=== PATIENT | female | born 1925 | race Caucasian/White ===

== ENCOUNTER 2017-01-03 17:14 | Emergency (ER) | payer MEDICARE, OTHER ==
[~2017-01-03 17:14] MED LIST: ASCO500C PO; ASPI81TA81 PO; BIOTCAP PO; CARV12.5 PO; FISH500C PO; LEVO.1 PO; VITA400T2 PO
[2017-01-03] MEDS ORDERED: HYDR200T3 PO (17:25)
[2017-01-03 17:27] VITALS: BP 221/108; PULSE 68; RESP 20; TEMP 98; O2SAT 98
[2017-01-03] MEDS ORDERED: CARVEDILOL 12.5 MG TAB PO ONE (17:45)
[2017-01-03 17:57] LABS: BLOOD, URINE TRACE (NEG); GLUCOSE,URINE NEG (NEG); KETONE, URINE NEG (NEG); NITRITE,URINE NEG (NEG); PH, URINE 6.5 (5.0-8.5)
--- NOTE | 2017-01-03 17:59 | PD ---
HPI Chief Complaint: Hypertension Time Seen by Provider: 17:30 Travel History International Travel<30 days: No Contact w/Intl Traveler<30days: No Traveled to known affect area: No History of Present Illness HPI This 89-year-old female presents with complaint of high blood pressure. She resides at [facility] and she monitors her blood pressure. She wasn't feeling well this morning she checked her blood pressure no stool for 110. She laid flat for a while and came down to 146/80. She went down for dinner tonight and felt lightheaded and her blood pressure was elevated again. She has been feeling dizzy off and on. She has a history of vertigo. She was admitted to the hospital in September 2016 hyponatremia PFSH Past Medical History Hx Anticoagulant Therapy: Yes Arthritis: Yes Asthma: No Atrial Fibrillation: Yes (FLUTTER) Autoimmune Disease: No Blood Disorders: No Depression: Yes Heart Rhythm Problems: No Cancer: No Cardiovascular Problems: Yes (MITRAL REGURGITATION) High Cholesterol: No Chemotherapy: No Chest Pain: No Congestive Heart Failure: No COPD: Yes Cerebrovascular Accident: No Diabetes: No Diminished Hearing: No Endocrine: Yes Gastrointestinal Disorders: Yes (DIVERTICULOSIS) GERD: No Glaucoma: No Genitourinary: No Headaches: No Hepatitis: No Hiatal Hernia: No Hypertension: Yes Immune Disorder: No Kidney Stones: No Medical other: Yes (OSTEOPENIA) Musculoskeletal: Yes (SPINAL STENOSIS, HUMERAL FX ) Neurologic: Yes (VERTIGO) Psychiatric: Yes Reproductive: No Respiratory: No Immunizations Current: Yes Migraines: No Myocardial Infarction: No Radiation Therapy: No Renal Failure: Yes (INSUFFECIENCY) Seizures: No Sickle Cell Disease: No Sleep Apnea: No Thyroid Disease: Yes (hypothyroidism) Ulcer: No Tetanus Vaccination: < 5 Years Influenza Vaccination: Yes Menopausal: Yes Past Surgical History Abdominal Surgery: Yes AICD: No Appendectomy: Yes Arteriovenous Shunt: No Cardiac Surgery: No Cholecystectomy: Yes Ear Surgery: No Endocrine Surgery: No Eye Surgery: Yes (right eye cataract surgery) Genitourinary Surgery: No Gynecologic Surgery: Yes (hysterectomy) Hysterectomy: Yes Insulin Pump: No Joint Replacement: No Oral Surgery: No Pacemaker: No Thoracic Surgery: No Other Surgery: Yes Social History Alcohol Use: No Tobacco Use: No (quit 60 yrs ago) Substance Use: No Allergies-Medications (Allergen,Severity, Reaction): Coded Allergies: LOTREL 10/2.5 (Verified Allergy, Severe, PEDAL EDEMA, 09/11/16) Penicillin (Verified Allergy, Severe, ITCHING, 09/11/16) Bactrim (Verified Allergy, Intermediate, ITCHING, 09/11/16) Bextra (Verified Allergy, Intermediate, ITCHING, 09/11/16) Biaxin (Verified Allergy, Intermediate, ITCHING, 09/11/16) Calcium Channel Blockers (Verified Allergy, Intermediate, ITCHING, 09/11/16 ) Codeine (Verified Allergy, Intermediate, ITCHING, 09/11/16) Lisinopril (Verified Allergy, Intermediate, ITCHING, 09/11/16) Neosporin (Verified Allergy, Intermediate, ITCHING, 09/11/16) Uncoded Allergies: CODEINE (Allergy, Mild, Itching, 04/03/06) DIARY (Allergy, Mild, BLOATTING, GAS, 04/03/06) LISINOPRIL (Allergy, Mild, Itching, 04/03/06) LOTREL (Allergy, Mild, Anaphylaxis, 04/03/06) MOBIC (Allergy, Mild, ITCHING, 12/10/79) NEOSPORIN (Allergy, Mild, Itching, 04/03/06) NO CALCIUM CHANNEL BLOCKERS (Allergy, Mild, Itching, 04/03/06) Reported Meds & Prescriptions Reported Meds & Active Scripts Active Coreg (Carvedilol) 12.5 Mg Tab 25 Mg PO BID Reported Hydroxychloroquine (Hydroxychloroquine Sulfate) 200 Mg Tab 200 Mg PO THREE TIMES WEEK Takw with food Aspir-81 (Aspirin) 81 Mg Tabdr 1 Tab PO DAILY Fish Oil ([place]-3 Fatty Acids) 500 Mg Cap 1 Tab PO DAILY Vitamin C (Ascorbic Acid) 500 Mg Cap 500 Mg PO DAILY Biotin 5 Mg Cap 5 Mg PO DAILY Synthroid (Levothyroxine Sodium) 100 Mcg Tab 75 Mcg PO DAILY Vitamin D (Cholecalciferol) 400 Unit Tab 1 Tab PO DAILY Review of Systems General / Constitutional: No: Fever Eyes: No: Diploplia, Blurred Vision HENT: Positive: Lightheadedness, No: Headaches Cardiovascular: No: Chest Pain or Discomfort, Palpitations Respiratory: No: Cough, Shortness of Breath Gastrointestinal: No: Vomiting, Diarrhea Genitourinary: No: Urgency, Frequency Musculoskeletal: No: Myalgias, Arthralgias Skin: No Rash, No Itching Neurologic: Positive: Weakness Psychiatric: No: Anxiety Hematologic/Lymphatic: No: Easy Bruising Physical Exam Narrative GENERAL: Well-developed female. Blood pressure is initially elevated SKIN: Focused skin assessment warm/dry. HEAD: Atraumatic. Normocephalic. EYES: Pupils equal and round. No scleral icterus. No injection or drainage. ENT: No nasal bleeding or discharge. Mucous membranes pink and moist. NECK: Trachea midline. No JVD. CARDIOVASCULAR: Regular rate and rhythm. No murmur appreciated. RESPIRATORY: No accessory muscle use. Clear to auscultation. Breath sounds equal bilaterally. GASTROINTESTINAL: Abdomen soft, non-tender, nondistended. Hepatic and splenic margins not palpable. MUSCULOSKELETAL: No obvious deformities. No clubbing. No cyanosis. No edema. NEUROLOGICAL: Awake and alert. No obvious cranial nerve deficits. Motor grossly within normal limits. Normal speech. PSYCHIATRIC: Appropriate mood and affect; insight and judgment normal. Data Data Last Documented VS Vital Signs Date Time Temp Pulse Resp B/P Pulse Ox O2 Delivery O2 Flow Rate FiO2 01/03/17 19:20 Room Air 01/03/17 19:19 67 163/81 97 01/03/17 17:27 98.0 20 Orders Complete Blood Count With Diff (01/03/17 17:45) Basic Metabolic Panel (Bmp) (01/03/17 17:45) Troponin I (01/03/17 17:45) Ua Includes Microscopic (01/03/17 17:45) Carvedilol (Coreg) (01/03/17 17:45) Clonidine (Catapres) (01/03/17 18:45) Labs Laboratory Tests Test 01/03/17 01/03/17 17:50 18:15 Urine Collection Type CLEAN CATCH Urine Color YELLOW Urine Turbidity CLEAR Urine pH 6.5 Urine Specific [place] 1.008 Urine Protein NEG mg/dL Urine Glucose (UA) NEG mg/dL Urine Ketones NEG mg/dL Urine Occult Blood TRACE Urine Nitrite NEG Urine Bilirubin NEG Urine Leukocyte Esterase NEG Urine RBC 0-3 /hpf Urine Squamous Epithelial 0-5 /hpf Cells Urine Collection Time 17:50 White Blood Count 3.6 TH/MM3 Red Blood Count 4.49 MIL/MM3 Hemoglobin 12.4 GM/DL Hematocrit 38.1 % Mean Corpuscular Volume 84.8 FL Mean Corpuscular Hemoglobin 27.7 PG Mean Corpuscular Hemoglobin 32.7 % Concent Red Cell Distribution Width 13.6 % Platelet Count 205 TH/MM3 Mean Platelet Volume 7.1 FL Neutrophils (%) (Auto) 66.7 % Lymphocytes (%) (Auto) 21.1 % Monocytes (%) (Auto) 6.7 % Eosinophils (%) (Auto) 4.2 % Basophils (%) (Auto) 1.3 % Neutrophils # (Auto) 2.4 TH/MM3 Lymphocytes # (Auto) 0.8 TH/MM3 Monocytes # (Auto) 0.2 TH/MM3 Eosinophils # (Auto) 0.2 TH/MM3 Basophils # (Auto) 0.0 TH/MM3 CBC Comment DIFF FINAL Differential Comment Sodium Level 141 MEQ/L Potassium Level 3.6 MEQ/L Chloride Level 103 MEQ/L Carbon Dioxide Level 28.2 MEQ/L Anion Gap 10 MEQ/L Blood Urea Nitrogen 17 MG/DL Creatinine 0.70 MG/DL Estimat Glomerular Filtration 79 ML/MIN Rate Random Glucose 87 MG/DL Calcium Level 8.9 MG/DL Troponin I LESS THAN 0.02 NG/ML MDM Medical Decision Making Medical Screen Exam Complete: Yes Emergency Medical Condition: Yes Medical Record Reviewed: Yes Differential Diagnosis Differential includes hypertension, electrolyte imbalance, Narrative Course Electrolytes are normal. Patient's blood pressure remained elevated. She was due for her carvedilol when she came here so we gave. I have also given clonidine. She may need an increase in her blood pressure medicine this would be best prescribed by her primary care doctor. She is on 12.5 twice daily of carvedilol and her heart rate is 65. Blood pressures come down 160/80. sHe is stable for discharge Diagnosis Primary Impression: Hypertension Additional Instructions: Follow-up with Dr. Holliday Disposition: 01 DISCHARGE HOME Condition: Stable Kt Luciano MD Jan 03, 2017 17:59
[2017-01-03 18:02] LABS: METHOD OF COLLECTION CLEAN CATCH; RBC, URINE 0-3 /hpf (0-3); SQUAMOUS EPITHELIAL CELL URINE 0-5 /hpf (0-5); URINE COLOR YELLOW (YELLW/STRAW)
[2017-01-03 18:24] LABS: AUTOMATED NEUTROPHIL # 2.4 TH/MM3 (1.8-7.7); BASOPHIL % 1.3 % (0.0-2.0); EOSINOPHIL # 0.2 TH/MM3 (0-0.4); EOSINOPHIL % 4.2 % (0.0-4.0); HEMATOCRIT 38.1 % (35.0-46.0); HEMO FLAGS DIFF FINAL; LYMPH % 21.1 % (9.0-44.0); LYMPHOCYTE # 0.8 TH/MM3 (1.0-4.8); MEAN CELL VOLUME 84.8 FL (80.0-100.0); MEAN CORPUSCULAR HEMOGLOBIN 27.7 PG (27.0-34.0); MEAN CORPUSCULAR HGB CONC 32.7 % (32.0-36.0); MONO % 6.7 % (0.0-8.0); NEUT % 66.7 % (16.0-70.0); PLATELET COUNT 205 TH/MM3 (150-450); RED BLOOD COUNT 4.49 MIL/MM3 (4.00-5.30); RED CELL DISTRIBUTION WIDTH 13.6 % (11.6-17.2); WHITE BLOOD COUNT 3.6 TH/MM3 (4.0-11.0)
[2017-01-03 18:31] LABS: CHLORIDE 103 MEQ/L (98-107); POTASSIUM 3.6 MEQ/L (3.5-5.1); SODIUM (NA) 141 MEQ/L (136-145)
[2017-01-03 18:34] LABS: ANION GAP 10 MEQ/L (5-15); BICARBONATE 28.2 MEQ/L (21.0-32.0); BLOOD UREA NITROGEN 17 MG/DL (7-18)
[2017-01-03 18:37] LABS: GLOMERULAR FILTRATION RATE 79 ML/MIN (>89)
[2017-01-03 18:38] VITALS: BP 212/99
[2017-01-03] MEDS ORDERED: cloNIDine HCL 0.1 MG TAB PO ONE (18:45)
[2017-01-03 19:19] VITALS: BP 163/81; PULSE 67; O2SAT 97
--- NOTE | 2017-01-05 12:50 | EKG ---
Date Performed: 01/03/2017 Time Performed: 17:19:04 PTAGE: 89 years EKG: Sinus rhythm Right bundle branch block Inferior ST-T changes are nonspecific Abnormal ECG PREVIOUS TRACING : 09/12/2016 07.21 Compared to prior tracing no significant change DOCTOR: Corbin Leo Interpretating Date/Time 01/05/2017 12:48:27
== END 2017-01-03 20:07 | disposition home or self-care (01) ==
LOC: PHED 17:14
DX: I10 Essential (primary) hypertension (principal); I45.10 Unspecified right bundle-branch block; I48.91 Unspecified atrial fibrillation; I34.0 Nonrheumatic mitral (valve) insufficiency; R42 Dizziness and giddiness; E03.9 Hypothyroidism, unspecified; Z79.01 Long term (current) use of anticoagulants
CPT/HCPCS: 80048; 81001; 84484; 85025; 93005; 99283

== ENCOUNTER 2017-01-05 07:28 | Emergency (ER) | payer MEDICARE, OTHER ==
[~2017-01-05] VITALS: Ht 149.9 cm; Wt 47.0 kg
[2017-01-05] VITALS (8 sets, daily range): BP systolic 154–208; BP diastolic 67–102; PULSE 68–78; RESP 16; TEMP 97.7; O2SAT 99
[~2017-01-05 07:28] MED LIST changes: +HYDR200T3 PO
[2017-01-05] MEDS ORDERED: SODIUM CHLORIDE 0.9% FLUSH 10 ML FLUSH IVF PRN (07:45)
[2017-01-05] MEDS ORDERED: hydrALAZINE HCL 20 MG/ML VIAL IV PUSH ONE (07:45)
[2017-01-05] MEDS ORDERED: CARV12.52 PO (07:59)
--- NOTE | 2017-01-05 08:08 | PD ---
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 She says that at 3 AM she was awoken by a ringing in her ear is. She says she was gets ringing in her ears when her blood pressure is high. She took it at that time her blood pressure was in the 170s systolic. She tried to relax and put her feet up by her blood pressure kept going up. Ultimately at around 6 AM she developed some sharp chest discomfort in the center of her chest that lasted for several seconds, moderate severity, immediately subsiding. She was seen for her blood pressure just several days ago by Dr. Singletary in the emergency department. At that time she had reassuring vital signs. She was given clonidine and discharged home. She takes 12.5 mg of Coreg per day. She has multiple allergies to blood pressure medications. She follows with Dr. Byrd and Dr. Jensen. [facility], [facility] Past Medical History Hx Anticoagulant Therapy: Yes (ASPIRIN 81 MG DAILY) Arthritis: Yes Asthma: No Atrial Fibrillation: Yes (FLUTTER) Autoimmune Disease: No Blood Disorders: No Depression: Yes Heart Rhythm Problems: No Cancer: No Cardiovascular Problems: Yes (MITRAL REGURGITATION, BBB) High Cholesterol: No Chemotherapy: No Chest Pain: No Congestive Heart Failure: No COPD: Yes Cerebrovascular Accident: No Diabetes: No Diminished Hearing: No Endocrine: Yes Gastrointestinal Disorders: Yes (DIVERTICULOSIS) GERD: No Glaucoma: No Genitourinary: No Headaches: No Hepatitis: No Hiatal Hernia: No Hypertension: Yes Immune Disorder: No Kidney Stones: No Musculoskeletal: Yes (SPINAL STENOSIS, HUMERAL FX ) Neurologic: Yes (VERTIGO) Psychiatric: Yes Reproductive: No Respiratory: No Immunizations Current: Yes Migraines: No Myocardial Infarction: No Radiation Therapy: No Renal Failure: Yes (INSUFFECIENCY) Seizures: No Sickle Cell Disease: No Sleep Apnea: No Thyroid Disease: Yes (hypothyroidism) Ulcer: No Menopausal: Yes Past Surgical History Abdominal Surgery: Yes AICD: No Appendectomy: Yes Arteriovenous Shunt: No Cardiac Surgery: No Cholecystectomy: Yes Ear Surgery: No Endocrine Surgery: No Eye Surgery: Yes (right eye cataract surgery) Genitourinary Surgery: No Gynecologic Surgery: Yes (hysterectomy) Hysterectomy: Yes Insulin Pump: No Joint Replacement: No Oral Surgery: No Pacemaker: No Thoracic Surgery: No Other Surgery: Yes Social History Alcohol Use: No Tobacco Use: No (quit yrs ago) Substance Use: No Allergies-Medications (Allergen,Severity, Reaction): Coded Allergies: LOTREL 10/2.5 (Verified Allergy, Severe, PEDAL EDEMA, 01/05/17) Penicillin (Verified Allergy, Severe, ITCHING, 01/05/17) Bactrim (Verified Allergy, Intermediate, ITCHING, 01/05/17) Bextra (Verified Allergy, Intermediate, ITCHING, 01/05/17) Biaxin (Verified Allergy, Intermediate, ITCHING, 01/05/17) Calcium Channel Blockers (Verified Allergy, Intermediate, ITCHING, 01/05/17 ) Codeine (Verified Allergy, Intermediate, ITCHING, 01/05/17) Lisinopril (Verified Allergy, Intermediate, ITCHING, 01/05/17) Mobic (Verified Allergy, Intermediate, ITCHING, 01/05/17) Neosporin (Verified Allergy, Intermediate, ITCHING, 01/05/17) Dairy (Verified Adverse Reaction, Intermediate, BLOATING/GAS, 01/05/17) Reported Meds & Prescriptions Reported Meds & Active Scripts Active Reported Carvedilol 12.5 Mg Tab 12.5 Mg PO BID Hydroxychloroquine (Hydroxychloroquine Sulfate) 200 Mg Tab 200 Mg PO THREE TIMES WEEK Takw with food Aspir-81 (Aspirin) 81 Mg Tabdr 1 Tab PO DAILY Fish Oil ([place]-3 Fatty Acids) 500 Mg Cap 1 Tab PO DAILY Vitamin C (Ascorbic Acid) 500 Mg Cap 500 Mg PO DAILY Biotin 5 Mg Cap 5 Mg PO DAILY Synthroid (Levothyroxine Sodium) 100 Mcg Tab 75 Mcg PO DAILY Vitamin D (Cholecalciferol) 400 Unit Tab 1 Tab PO MOWEFR Review of Systems Except as stated in HPI: all other systems reviewed are Neg Physical Exam Narrative GENERAL:Well appearing, no acute distress SKIN: Warm and dry. HEAD: Atraumatic. Normocephalic. EYES: Pupils equal and round. No injection or drainage. ENT: Moist mucous membranes NECK: Trachea midline. CARDIOVASCULAR: Regular rate and rhythm. No murmur appreciated. RESPIRATORY: Clear to auscultation. Breath sounds equal bilaterally. GASTROINTESTINAL: Abdomen soft, non-tender, nondistended. MUSCULOSKELETAL: No obvious deformities. NEUROLOGICAL: Awake and alert. No obvious cranial nerve deficits. Moving all extremities. PSYCHIATRIC: Appropriate mood and affect; insight and judgment normal. Data Data Last Documented VS Vital Signs Date Time Temp Pulse Resp B/P Pulse Ox O2 Delivery O2 Flow Rate FiO2 01/05/17 08:35 69 16 179/82 99 Room Air 01/05/17 07:35 97.7 Orders Electrocardiogram (01/05/17 07:43) Basic Metabolic Panel (Bmp) (01/05/17 07:43) Complete Blood Count With Diff (01/05/17 07:43) Troponin I (01/05/17 07:43) Ecg Monitoring (01/05/17 07:43) Bilateral Bp Monitoring (01/05/17 07:43) Iv Access Insert/Monitor (01/05/17 07:43) Oximetry (01/05/17 07:43) Oxygen Administration (01/05/17 07:43) Sodium Chloride 0.9% Flush (Ns Flush) (01/05/17 07:45) Hydralazine Inj (Apresoline Inj) (01/05/17 07:45) Labs Laboratory Tests Test 01/05/17 08:20 White Blood Count 4.0 TH/MM3 Red Blood Count 4.41 MIL/MM3 Hemoglobin 12.2 GM/DL Hematocrit 36.7 % Mean Corpuscular Volume 83.3 FL Mean Corpuscular Hemoglobin 27.6 PG Mean Corpuscular Hemoglobin 33.2 % Concent Red Cell Distribution Width 13.2 % Platelet Count 211 TH/MM3 Mean Platelet Volume 6.7 FL Neutrophils (%) (Auto) 72.9 % Lymphocytes (%) (Auto) 16.5 % Monocytes (%) (Auto) 6.0 % Eosinophils (%) (Auto) 3.6 % Basophils (%) (Auto) 1.0 % Neutrophils # (Auto) 3.0 TH/MM3 Lymphocytes # (Auto) 0.7 TH/MM3 Monocytes # (Auto) 0.2 TH/MM3 Eosinophils # (Auto) 0.1 TH/MM3 Basophils # (Auto) 0.0 TH/MM3 CBC Comment DIFF FINAL Differential Comment Sodium Level 143 MEQ/L Potassium Level 4.0 MEQ/L Chloride Level 106 MEQ/L Carbon Dioxide Level 27.3 MEQ/L Anion Gap 10 MEQ/L Blood Urea Nitrogen 18 MG/DL Creatinine 0.65 MG/DL Estimat Glomerular Filtration 86 ML/MIN Rate Random Glucose 98 MG/DL Calcium Level 8.7 MG/DL Troponin I LESS THAN 0.02 NG/ML MDM Medical Decision Making Medical Screen Exam Complete: Yes Emergency Medical Condition: Yes Interpretation(s) EKG: nsr, rbbb, some t wave inversion in the inferior leads which is old no leukocytosis Electrolytes are reassuring Troponin is normal Differential Diagnosis Hypertension, hypertensive urgency, hypertensive emergency, myocardial infarction Narrative Course This is an 89-year-old female who presents to the emergency department with high blood pressure. This is her second visit this week for elevated blood pressure. She does report that she had several seconds of chest discomfort in the setting of this this morning. She is placed on a monitor and an IV was established. EKG is unchanged from prior. Labs are reassuring with a normal troponin. She was given 10 mg of IV hydralazine and her blood pressure reduced. I had a long conversation with the patient regarding admission versus discharge. Given her age and her increased risk of potential adverse effects of hospitalization she agreed she didn't want to be admitted. She has multiple stated allergies to blood pressure medications and she told me that she's been told by a doctor in the past that she can "only take beta blockers". Unfortunately her pulse in the 60s to 70s and I don't think she'll tolerate an increase in her Coreg. She was amenable to trying hydrochlorothiazide as an addition to her regimen. 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 Diagnosis Primary Impression: Hypertension Qualified Code: I10 - Essential hypertension Patient Instructions: General Instructions Additional Instructions: If you develop severe chest pain, shortness of breath, sweating, lightheadedness , dizziness or difficulty breathing return to the emergency department immediately. Followup with your primary care physician in 2-3 days if your symptoms are not resolved. Med/Other Pt SpecificInfo: Prescription(s) given Scripts Hydrochlorothiazide 25 Mg Tab25 Mg PO DAILY #30 TAB Ref 0 Prov:Lori Talley MD 01/05/17 Disposition: DISCHARGE HOME Condition: Stable Lori Talley MD Jan 05, 2017 08:08
[2017-01-05 08:31] LABS: EOSINOPHIL # 0.1 TH/MM3 (0-0.4); EOSINOPHIL % 3.6 % (0.0-4.0); HEMATOCRIT 36.7 % (35.0-46.0); HEMO FLAGS DIFF FINAL; LYMPH % 16.5 % (9.0-44.0); LYMPHOCYTE # 0.7 TH/MM3 (1.0-4.8); MEAN CELL VOLUME 83.3 FL (80.0-100.0); MEAN CORPUSCULAR HEMOGLOBIN 27.6 PG (27.0-34.0); MEAN CORPUSCULAR HGB CONC 33.2 % (32.0-36.0); NEUT % 72.9 % (16.0-70.0); PLATELET COUNT 211 TH/MM3 (150-450); RED BLOOD COUNT 4.41 MIL/MM3 (4.00-5.30); RED CELL DISTRIBUTION WIDTH 13.2 % (11.6-17.2)
[2017-01-05 08:37] LABS: CHLORIDE 106 MEQ/L (98-107); SODIUM (NA) 143 MEQ/L (136-145)
[2017-01-05 08:40] LABS: ANION GAP 10 MEQ/L (5-15); BICARBONATE 27.3 MEQ/L (21.0-32.0)
[2017-01-05 08:41] LABS: BLOOD UREA NITROGEN 18 MG/DL (7-18)
[2017-01-05 08:44] LABS: GLOMERULAR FILTRATION RATE 86 ML/MIN (>89)
[2017-01-05] MEDS ORDERED: HYDR25TA5 PO (09:00)
--- NOTE | 2017-01-05 22:44 | EKG ---
Date Performed: 01/05/2017 Time Performed: 07:42:58 PTAGE: 89 years EKG: Sinus rhythm Right bundle branch block Inferior ST-T changes are nonspecific Abnormal ECG PREVIOUS TRACING : 01/03/2017 17.19 Compared to prior tracing no significant change DOCTOR: Zohaib Jensen Interpretating Date/Time 01/05/2017 22:44:12
== END 2017-01-05 09:57 | disposition home or self-care (01) ==
LOC: PHED 07:28
DX: I10 Essential (primary) hypertension (principal); I34.0 Nonrheumatic mitral (valve) insufficiency; I48.92 Unspecified atrial flutter; J44.9 Chronic obstructive pulmonary disease, unspecified; Z79.82 Long term (current) use of aspirin; E03.9 Hypothyroidism, unspecified
CPT/HCPCS: 80048; 84484; 85025; 93005; 96374; 99284; J0360

== ENCOUNTER 2017-04-28 09:23 | Emergency (ER) | payer MEDICARE, OTHER ==
[~2017-04-28 09:23] MED LIST changes: -CARV12.5 PO; +CARV12.52 PO; +HYDR25TA5 PO
[2017-04-28] MEDS ORDERED: MECLIZINE HCL 25 MG TAB PO ONE (09:45)
[2017-04-28] MEDS ORDERED: ONDANSETRON ODT 4 MG TAB PO ONE (09:45)
[2017-04-28] MEDS ORDERED: MECL-62 PO (09:53)
[2017-04-28] MEDS ORDERED: ZOFR4TAB3 SL (09:53)
--- NOTE | 2017-04-28 09:53 | PD ---
HPI . Dizziness Chief Complaint: Dizziness Time Seen by Provider: 09:42 Travel History International Travel<30 days: No Contact w/Intl Traveler<30days: No Traveled to known affect area: No History of Present Illness HPI This patient presents with the chief complaint of the acute onset of dizziness. She describes the dizziness as vertigo. 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 She states that she turned suddenly when she had the acute onset of the vertigo. She has had some associated nausea. The vertigo did cause her to fall. She states that she has some bruises but no real pain from the fall. The patient reports a positive previous similar history but it has been a number of years ago since she had an episode of vertigo. She had some meclizine at home but it was so she did not take it. She states that her symptoms have gradually spontaneously improved. She does, however, still have some mild vertigo and nausea. The symptoms are exacerbated by movement. The symptoms were initially severe but are now mild. PFSH Past Medical History Hx Anticoagulant Therapy: Yes (ASPIRIN 81 MG DAILY) Arthritis: Yes Asthma: No Atrial Fibrillation: Yes (FLUTTER) Autoimmune Disease: No Blood Disorders: No Depression: Yes Heart Rhythm Problems: No Cancer: No Cardiovascular Problems: Yes (MITRAL REGURGITATION, BBB) High Cholesterol: No Chemotherapy: No Chest Pain: No Congestive Heart Failure: No COPD: Yes Cerebrovascular Accident: No Diabetes: No Diminished Hearing: No Endocrine: Yes Gastrointestinal Disorders: Yes (DIVERTICULOSIS) GERD: No Glaucoma: No Genitourinary: No Headaches: No Hepatitis: No Hiatal Hernia: No Hypertension: Yes Immune Disorder: No Implanted Vascular Access Dvce: No Kidney Stones: No Musculoskeletal: Yes (SPINAL STENOSIS, HUMERAL FX ) Neurologic: Yes (VERTIGO) Psychiatric: Yes Reproductive: No Respiratory: No Immunizations Current: Yes Migraines: No Myocardial Infarction: No Radiation Therapy: No Renal Failure: Yes (INSUFFECIENCY) Seizures: No Sickle Cell Disease: No Sleep Apnea: No Thyroid Disease: Yes (hypothyroidism) Ulcer: No Menopausal: Yes Past Surgical History Abdominal Surgery: Yes AICD: No Appendectomy: Yes Arteriovenous Shunt: No Cardiac Surgery: No Cholecystectomy: Yes Ear Surgery: No Endocrine Surgery: No Eye Surgery: Yes (right eye cataract surgery) Genitourinary Surgery: No Gynecologic Surgery: Yes (hysterectomy) Hysterectomy: Yes Insulin Pump: No Joint Replacement: No Neurologic Surgery: No Oral Surgery: No Pacemaker: No Thoracic Surgery: No Other Surgery: Yes Social History Alcohol Use: No Tobacco Use: No (quit yrs ago) Substance Use: No Allergies-Medications (Allergen,Severity, Reaction): Coded Allergies: LOTREL 10/2.5 (Verified Allergy, Severe, PEDAL EDEMA, 04/28/17) Penicillin (Verified Allergy, Severe, ITCHING, 04/28/17) Bactrim (Verified Allergy, Intermediate, ITCHING, 04/28/17) Bextra (Verified Allergy, Intermediate, ITCHING, 04/28/17) Biaxin (Verified Allergy, Intermediate, ITCHING, 04/28/17) Calcium Channel Blockers (Verified Allergy, Intermediate, ITCHING, 04/28/17 ) Codeine (Verified Allergy, Intermediate, ITCHING, 04/28/17) Lisinopril (Verified Allergy, Intermediate, ITCHING, 04/28/17) Mobic (Verified Allergy, Intermediate, ITCHING, 04/28/17) Neosporin (Verified Allergy, Intermediate, ITCHING, 04/28/17) Dairy (Verified Adverse Reaction, Intermediate, BLOATING/GAS, 04/28/17) Reported Meds & Prescriptions Reported Meds & Active Scripts Active Zofran Odt (Ondansetron Odt) 4 Mg Tab 4 Mg SL Q6HR PRN Meclizine (Meclizine HCl) 25 Mg Tab 25 Mg PO TID PRN Hydrochlorothiazide 25 Mg Tab 25 Mg PO DAILY Reported Carvedilol 12.5 Mg Tab 12.5 Mg PO BID Hydroxychloroquine (Hydroxychloroquine Sulfate) 200 Mg Tab 200 Mg PO THREE TIMES WEEK Takw with food Aspir-81 (Aspirin) 81 Mg Tabdr 1 Tab PO DAILY Fish Oil ([place]-3 Fatty Acids) 500 Mg Cap 1 Tab PO DAILY Biotin 5 Mg Cap 5 Mg PO DAILY Synthroid (Levothyroxine Sodium) 100 Mcg Tab 75 Mcg PO DAILY Review of Systems Except as stated in HPI: all other systems reviewed are Neg General / Constitutional: No: Fever, Chills Eyes: No: Diploplia HENT: Positive: Vertigo, No: Headaches Gastrointestinal: Positive: Nausea, No: Vomiting Skin: Positive Change in Pigmentation (bruising of the left elbow and left hip) Physical Exam Narrative GENERAL: Patient is awake and alert and fully oriented. SKIN: Warm and dry. She does have a bruise on the left elbow and the left hip. HEAD: Atraumatic. Normocephalic. No palpable contusion. No abrasion or laceration. EYES: Pupils equal and round. Extraocular movements are intact. ENT: No nasal bleeding or discharge. Mucous membranes pink and moist. NECK: Trachea midline. Neck is supple and nontender. CARDIOVASCULAR: Regular rate and rhythm. RESPIRATORY: No accessory muscle use. GASTROINTESTINAL: Abdomen soft, non-tender, nondistended. MUSCULOSKELETAL: No obvious deformities. No edema. NEUROLOGICAL: Awake and alert. No obvious cranial nerve deficits. Motor grossly within normal limits. Normal speech. [id number] exam is intact. PSYCHIATRIC: Appropriate mood and affect; insight and judgment normal. Data Data Orders Ondansetron Odt (Zofran Odt) (04/28/17 09:45) Meclizine (Antivert) (04/28/17 09:45) [facility] Medical Decision Making Medical Screen Exam Complete: Yes Emergency Medical Condition: Yes Differential Diagnosis Differential diagnosis of dizziness includes but is not limited to vertigo, dehydration, acute blood loss, sepsis, ACS Narrative Course This patient presents with the chief complaint of dizziness. Her history is classic for vertigo. She has no evidence of stroke and no evidence of head injury. She will be treated symptomatically. The patient feels much better. Diagnosis Primary Impression: Vertigo Patient Instructions: General Instructions, Vertigo (DC) Med/Other Pt SpecificInfo: Prescription(s) given Scripts Ondansetron Odt (Zofran Odt)4 Mg Tab4 Mg SL Q6HR PRN (Nausea/Vomiting) #30 TAB Ref 0 Prov:Delmy Ramirez MD 04/28/17 Meclizine 25 Mg Tab25 Mg PO TID PRN (VERTIGO) #30 TAB Ref 0 Prov:Delmy Ramirez MD 04/28/17 Disposition: 01 DISCHARGE HOME Condition: Stable Delmy Ramirez MD Apr 28, 2017 09:53
== END 2017-04-28 10:52 | disposition home or self-care (01) ==
LOC: PHED 09:23
DX: R42 Dizziness and giddiness (principal); R11.0 Nausea
CPT/HCPCS: 99284